=== PATIENT | female | born 1965 | race Caucasian/White ===

== ENCOUNTER 2019-11-28 17:07 | Emergency (ER) | payer BC ==
[2019-11-28] MEDS ORDERED: Acetaminophen/oxyCODONE 325-5 MG Tab PO ONE (17:08)
[2019-11-28] MEDS ORDERED: Cyclobenzaprine 10 MG Tab PO ONE (17:08)
[2019-11-28 17:38] LABS: CHLORIDE,CL 103 mEq/L (98-106); SODIUM,NA 139 mEq/L (136-145)
--- NOTE | 2019-11-28 17:50 | EDM.PDOC ---
ED HPI GENERAL MEDICAL PROBLEM - General Chief Complaint: Back Pain or Injury Stated Complaint: "GOT BUCKED OFF MY HORSE" Time Seen by Provider: 11/28/19 17:13 Source of Information: Reports: Patient History Limitations: Reports: No Limitations - History of Present Illness INITIAL COMMENTS - FREE TEXT/NARRATIVE: This patient is a 54 year old female that presents to the ER. Patient reports she was riding her horse and was standing still, the horse bucked her off. Patient reports landing on her back. She reports having right lower/mid back pain. She reports it knocked the wind out of her. Patient reports she was not wearing a helmet. She reports she did not hit her head. She reports no loc, n, v, vision changes, neck pain, nec stiffness, chest pain, abd pain, urinary/bowel incontinence, denies all extremity pain. She reports her only complaint is right lower/mid back pain. She says not along the spine. She reports she does feel mildly short of breath. She reports that she was able to get up and ambulate into the ER. Patient has refused pain medication at this time. Trauma code was called. Labs were done, CXR ordered. Onset: Today Onset Date: 11/28/19 Duration: Hour(s): (1) Location: Reports: Back Quality: Reports: Ache, Throbbing Severity: Moderate Improves with: Reports: Immobilization Worsens with: Reports: Movement Associated Symptoms: Reports: No Other Symptoms. Denies: Confusion, Chest Pain, Cough, cough w sputum, Diaphoresis, Fever/Chills, Headaches, Loss of Appetite, Malaise, Nausea/Vomiting, Rash, Seizure, Shortness of Breath, Syncope, Weakness Middle Back Pain Score (Numeric/FACES): 7 - Related Data Allergies Allergy/AdvReac Type Severity Reaction Status Date / Time oxycodone [Oxycodone] Allergy Nausea Verified 11/28/19 17:21 Home Meds: Home Meds Levothyroxine Sodium 100 mcg PO DAILY 09/28/13 [History] Metoprolol Succinate [Toprol XL 100mg] 100 mg PO DAILY 09/28/13 [History] Sertraline HCl 100 mg PO DAILY 09/28/13 [History] Rosuvastatin [Crestor] 1 tab PO DAILY 11/28/19 [History] metFORMIN HCl [Metformin HCl ER] 750 mg PO DAILY 11/28/19 [History] ED ROS GENERAL - Review of Systems Review Of Systems: See Below Constitutional: Reports: No Symptoms HEENT: Reports: No Symptoms Respiratory: Reports: Shortness of Breath. Denies: Pleuritic Chest Pain, Cough Cardiovascular: Reports: Other (right lateral, lower and mid back.) Endocrine: Reports: No Symptoms GI/Abdominal: Reports: Abdominal Pain (Right lateral) : Reports: No Symptoms Musculoskeletal: Reports: Back Pain Skin: Reports: No Symptoms Neurological: Reports: No Symptoms Psychiatric: Reports: No Symptoms Hematologic/Lymphatic: Reports: No Symptoms Immunologic: Reports: No Symptoms ED EXAM,LOWER BACK PAIN/INJURY - Physical Exam Exam: See Below Exam Limited By: Other (in pain) General Appearance: Alert, WD/WN, No Apparent Distress Eye Exam: Bilateral Eye: EOMI, Normal Inspection, PERRL Ears: Normal External Exam, Normal Canal, Hearing Grossly Normal, Normal TMs Nose: Normal Inspection, Normal Mucosa, No Blood Throat/Mouth: Normal Inspection, Normal Lips, Normal Teeth, Normal Gums, Normal Oropharynx, Normal Voice, No Airway Compromise Head: Atraumatic, Normocephalic Neck: Normal Inspection, Supple, Non-Tender, Full Range of Motion Respiratory/Chest: No Respiratory Distress, Lungs Clear, Normal Breath Sounds, No Accessory Muscle Use, Chest Non-Tender. No: Respiratory Distress, Decreased Breath Sounds, Stridor, Pleural Rub, Accessory Muscle Use, Retractions, Splinting, Prolonged Expiration Cardiovascular: Normal Peripheral Pulses, Regular Rate, Rhythm, No Edema, No Gallop, No JVD, No Murmur, No Rub GI/Abdominal: Normal Bowel Sounds, Soft, Non-Tender, No Organomegaly, No Distention, No Abnormal Bruit, No Mass (Female) Exam: Deferred Rectal (Female) Exam: Deferred Back Exam: Normal Inspection, Full Range of Motion Extremities: Normal Inspection, Normal Range of Motion, Non-Tender, No Pedal Edema, Normal Capillary Refill Neurological: Alert, Normal Mood/Affect, Normal Gait, Oriented x 3 Psychiatric: Normal Affect, Normal Mood, Anxious Skin Exam: Warm, Dry, Intact, Normal Color Lymphatic: No Adenopathy EKG INTERPRETATION EKG Date: 11/28/19 Time: 18:07 Rhythm: NSR Rate (Beats/Min): 66 [place]: Normal P-Wave: Present QRS: Normal ST-T: Normal QT: Normal Course - Vital Signs Last Recorded V/S: Last Vital Signs Temp 97.5 F 11/28/19 19:01 Pulse 81 11/28/19 19:01 Resp 16 11/28/19 19:01 BP 158/73 H 11/28/19 19:01 Pulse Ox 99 11/28/19 19:01 - Orders/Labs/Meds Orders: Active Orders 24 hr Category Date Time Status Ribs 2V w Chest Rt [CR] Stat Exams 11/28/19 17:13 Taken Labs: Laboratory Tests 11/28/19 11/28/19 11/28/19 Range/Units 17:18 17:18 17:18 WBC 7.0 (5.0-10.0) 10^3/uL RBC 4.89 (4.00-5.50) 10^6/uL Hgb 13.5 (12.0-16.0) g/dL Hct 40.8 (37.0-47.0) % MCV 83.4 (82.0-94.0) fL MCH 27.6 (27.0-32.0) pg MCHC 33.1 (33.0-38.0) g/dL RDW Coeff of Kelly 14.2 (11.0-15.0) % Plt Count 247 (150-400) 10^3/uL Neut % (Auto) 63.3 (35-85) % Lymph % (Auto) 29.5 (10-55) % Cobb % (Auto) 6.0 (0-16) % Eos % (Auto) 1.1 (0-5) % Baso % (Auto) 0.1 (0-3) % Neut # (Auto) 4.42 (1.80-7.00) 10^3/uL Lymph # (Auto) 2.06 (1.00-4.80) 10^3/uL Cobb # (Auto) 0.42 (0.00-0.80) 10^3/uL Eos # (Auto) 0.08 (0.00-0.45) 10^3/uL Baso # (Auto) 0.01 10^3/uL PT 10.3 (9.7-12.3) SEC INR 1.02 (0.92-1.18) APTT 23.0 L (23.2-32.3) SEC Sodium 139 (136-145) mEq/L Potassium 3.9 (3.5-5.0) mEq/L Chloride 103 (98-106) mEq/L Carbon Dioxide 27 (21-32) mmol/L BUN 14 (7-18) mg/dL Creatinine 0.8 (0.6-1.0) mg/dL Est Cr Clr Drug Dosing 65.06 mL/min Estimated GFR (MDRD) > 60 (>=60) mL/min Glucose 112 H (75-99) mg/dL Calcium 9.2 (8.4-10.1) mg/dL Urine Color (YELLOW) Urine Appearance (CLEAR) Urine pH (4.5-8.0) Ur Specific [place] (1.003-1.020) Urine Protein (NEGATIVE) mg/dL Urine Glucose (UA) (NEGATIVE) mg/dL Urine Ketones (NEGATIVE) mg/dL Urine Occult Blood (NEGATIVE) Urine Nitrite (NEGATIVE) Urine Bilirubin (NEGATIVE) Urine Urobilinogen (0.2-1.0) EU/dL Ur Leukocyte Esterase (NEGATIVE) U Hyaline Cast (Auto) (NOT SEEN) /LPF Urine RBC (0-5) /HPF Urine WBC (0-5) /HPF Ur Squamous Epith Cells (NOT SEEN) /HPF Urine Bacteria (NOT SEEN) /HPF Urine Mucus (NOT SEEN) /HPF 11/28/19 Range/Units 18:15 WBC (5.0-10.0) 10^3/uL RBC (4.00-5.50) 10^6/uL Hgb (12.0-16.0) g/dL Hct (37.0-47.0) % MCV (82.0-94.0) fL MCH (27.0-32.0) pg MCHC (33.0-38.0) g/dL RDW Coeff of Kelly (11.0-15.0) % Plt Count (150-400) 10^3/uL Neut % (Auto) (35-85) % Lymph % (Auto) (10-55) % Cobb % (Auto) (0-16) % Eos % (Auto) (0-5) % Baso % (Auto) (0-3) % Neut # (Auto) (1.80-7.00) 10^3/uL Lymph # (Auto) (1.00-4.80) 10^3/uL Cobb # (Auto) (0.00-0.80) 10^3/uL Eos # (Auto) (0.00-0.45) 10^3/uL Baso # (Auto) 10^3/uL PT (9.7-12.3) SEC INR (0.92-1.18) APTT (23.2-32.3) SEC Sodium (136-145) mEq/L Potassium (3.5-5.0) mEq/L Chloride (98-106) mEq/L Carbon Dioxide (21-32) mmol/L BUN (7-18) mg/dL Creatinine (0.6-1.0) mg/dL Est Cr Clr Drug Dosing mL/min Estimated GFR (MDRD) (>=60) mL/min Glucose (75-99) mg/dL Calcium (8.4-10.1) mg/dL Urine Color Yellow (YELLOW) Urine Appearance Cloudy (CLEAR) Urine pH 5.5 (4.5-8.0) Ur Specific [place] >= 1.030 H (1.003-1.020) Urine Protein Negative (NEGATIVE) mg/dL Urine Glucose (UA) Negative (NEGATIVE) mg/dL Urine Ketones Negative (NEGATIVE) mg/dL Urine Occult Blood Negative (NEGATIVE) Urine Nitrite Negative (NEGATIVE) Urine Bilirubin Negative (NEGATIVE) Urine Urobilinogen 0.2 (0.2-1.0) EU/dL Ur Leukocyte Esterase Negative (NEGATIVE) U Hyaline Cast (Auto) Rare (NOT SEEN) /LPF Urine RBC 0-5 (0-5) /HPF Urine WBC 0-5 (0-5) /HPF Ur Squamous Epith Cells Many H (NOT SEEN) /HPF Urine Bacteria Few H (NOT SEEN) /HPF Urine Mucus Rare (NOT SEEN) /HPF Meds: Medications Discontinued Medications Generic Name Dose Route Start Last Admin Trade Name Freq PRN Reason Stop Dose Admin Cyclobenzaprine HCl 1 packet 11/28/19 18:44 11/28/19 19:18 Take Home: Cyclobenzaprine 10 Mg, 4 Tab Pack PO 11/28/19 18:45 1 packet ONETIME ONE Administration Sodium Chloride 1,000 mls @ 1,000 mls/hr 11/28/19 18:08 09/27/20 19:18 Normal Saline IV 11/28/19 19:07 Not Given .BOLUS ONE Iopamidol 100 ml 11/28/19 18:28 11/28/19 18:31 Isovue-370 (76%) IVPUSH 11/28/19 18:29 100 ml ONETIME ONE Administration Oxycodone/Acetaminophen 3 packet 11/28/19 18:43 11/28/19 19:18 Take Home: Acetaminophen/Oxycodon, 2 Tab Pack PO 11/28/19 18:44 3 packet ONETIME ONE Administration - Radiology Interpretation Free Text/Narrative:: CXR: no pneumo/hemothorax, no rib fractures seen. lungs clear. - Re-Assessments/Exams Free Text/Narrative Re-Assessment/Exam: 11/28/19 18:09 Due to patient pain complaint, reporting now a deeper pain. And the trauma mechanism, will perform a trauma ct scan of the chest, abd/pelvis. As she now reports the pain is in the right lower chest, right upper lateral abdomen and radiates all across the back to the left side, deep. No made worse with palpation. Worse with movement. Patient refused pain medication. 11/28/19 18:49 Patient UA negative for blood. The patient has been stuck for IV without success from RN. Patient is now refusing the CTs. I went and spoke to the patient. I offered to start the patient IV. She has refused. She reports she thinks this is muscle pain. She reports she does not want the CT and wants to go home. She reports she will come back if she worsens. The patient is educated about risks of , trauma, kidney injury, chest injury, cardiac injury. I educated patient that she could if there is injury that we can not see now by not doing the ct. She has understanding and voiced back to me her understanding. She still reports she wants to go home. I educated her it would be against medical advice because I recommend the ct. She agrees and understands this. Educated patient when to return to the ER emergently or call 911. She voices back understanding. I will prescribe her Percocet for pain and Flexeril. She has allergy to oxycodone listed, however patient reports this is due to nausea on empty stomach. She will attempt to take with food. Patient AMA. Departure - Departure Time of Disposition: 18:44 Disposition: Against Medical Advice 07 Condition: Undetermined Clinical Impression: Left against medical advice - Discharge Information *PRESCRIPTION DRUG MONITORING PROGRAM REVIEWED*: Not Applicable *COPY OF PRESCRIPTION DRUG MONITORING REPORT IN PATIENT KILO: Not Applicable Instructions: Muscle Strain, [id number], Pain Medicine Instructions, [id number] Referrals: PCP,Unknown [Primary Care Provider] - Forms: ED Department Discharge Additional Instructions: Followup with your primary care provider this week for recheck Return to the ER for worsening of condition or any emergent concerns such as shortness of breath, increase in pain, chest pain, abdominal pain, urinating blood Percocet 5/325mg 1-2 pills every 4-6 hours as needed for pain #6 take home, #18 no refill Flexeril 10mg 1 pill every 8 hours as needed for muscle spasm #4 take home: #15 no refill Ice to painful areas Sepsis Event Note (ED) - Focused Exam Vital Signs: Vital Signs Temp Pulse Resp BP Pulse Ox 11/28/19 19:01 97.5 F 81 16 158/73 H 99 - My Orders Last 24 Hours: My Active Orders 11/28/19 17:13 Ribs 2V w Chest Rt [CR] Stat - Assessment/Plan Last 24 Hours: My Active Orders 11/28/19 17:13 Ribs 2V w Chest Rt [CR] Stat Plan: PLEASE SEE RN NOTE FOR PFSH
[2019-11-28] MEDS ORDERED: Sodium Chloride 0.9% 1,000 ML IV ONE (18:08)
[2019-11-28] MEDS ORDERED: Iopamidol 755 Mg/ML 100 ML Bottle IVPUSH ONE (18:28)
[2019-11-28] MEDS ORDERED: Take Home: Acetaminophen/oxyCODONE 325-5 MG, 2 Tab Pack PO ONE (18:43)
[2019-11-28] MEDS ORDERED: Take Home: Cyclobenzaprine 10 MG Tab, 4 Tab Pack PO ONE (18:44)
[2019-11-28 19:03] VITALS: BP 158/73; PULSE 81
== END 2019-11-28 19:39 | disposition left against medical advice (07) ==
LOC: CC.ED 17:07
DX: R07.9 Chest pain, unspecified (principal); R10.11 Right upper quadrant pain; M54.6 Pain in thoracic spine; R06.02 Shortness of breath; Z88.5 Allergy status to narcotic agent
CPT/HCPCS: 36415; 71101-RT; 80048; 81001; 85025; 85610; 85730; 99284; A9270-GY; Q9967